=== PATIENT | female | born 1960 | race Two or more races ===

== ENCOUNTER 2016-11-15 08:00 | Emergency (ER) | payer OTHER ==
[2016-11-15] MEDS ORDERED: ACETAMINOPHEN 500 MG TABLET ONE (08:26)
--- NOTE | 2016-11-15 09:18 | RAD ---
CHEST 2 VIEWS HISTORY: Left-sided chest pain. Frontal and lateral chest radiographs dated 11/15/2016. COMPARISON: 12/08/2014. FINDINGS: FOCAL AIRSPACE OPACITY: No gross airspace consolidation. PLEURAL EFFUSION: None. CARDIOMEDIASTINAL SILHOUETTE: Mild cardiomegaly, without vascular congestion. PNEUMOTHORAX: None identified. OSSEOUS STRUCTURES: Changes of thoracic disc degeneration. UPPER ABDOMEN: Status post cholecystectomy. IMPRESSION: Mild cardiomegaly without vascular congestion. Evidence of prior cholecystectomy.
== END 2016-11-15 09:49 | disposition home or self-care (01) ==
LOC: ED 08:00
DX: S20.212A Contusion of left front wall of thorax, initial encounter (principal); X58.XXXA Exposure to other specified factors, initial encounter; Y93.83 Activity, rough housing and horseplay; Y92.9 Unspecified place or not applicable
CPT/HCPCS: 71020; 99283 ×2; A9270